=== PATIENT | female | born 2000 | race Caucasian/White ===

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

== ENCOUNTER 2018-10-22 16:28 | Emergency (ER) | payer BC ==
[2018-10-22 16:47] VITALS: BP 108/69
--- NOTE | 2018-10-22 17:12 | UC ---
HPI Febrile Illness - History of Current Complaint Chief Complaint: UCGeneralIllness Time Seen by Provider: 10/22/18 16:41 Hx Last Menstrual Period: 2 months ago Pain Intensity: 0 - Allergy/Home Medications Allergies/Adverse Reactions: Allergies Allergy/AdvReac Type Severity Reaction Status Date / Time No Known Allergies Allergy Verified 10/22/18 16:47 Home Medications: Home Medications Cabergoline 0.5 mg PO SEE INSTRUCTIONS 10/22/18 [History Confirmed 10/22/18] PMH/Surg Hx/FS Hx/Imm Hx Previously Healthy: Yes - Surgical History Surgical History: Yes Surgery Procedure, Year, and Place: 07/2017 Rt THUMB - Family History Known Family History: Positive: Hypertension - Social History Alcohol Use: None Substance Use Type: None Smoking Status (MU): Never Smoked Tobacco Review of Systems All Other Systems Reviewed And Are Negative: Yes Constitutional: Positive: Fever, Chills, Fatigue Neurological: Positive: Headache Is Patient Immunocompromised?: No Physical Exam Triage Information Reviewed: Yes Appearance: Well-Appearing, Well-Nourished, Ill-Appearing Vital Signs: Initial Vital Signs Temp 98 F 10/22/18 16:37 Pulse 86 10/22/18 16:37 Resp 16 10/22/18 16:37 BP 108/69 10/22/18 16:37 Pulse Ox 99 10/22/18 16:37 Vital Signs Reviewed: Yes Eye Exam: Normal ENT: Positive: Pharyngeal erythema, TMs normal Dental Exam: Normal Neck exam: Normal Neck: Positive: Supple, Nontender, No Lymphadenopathy Respiratory Exam: Normal Respiratory: Positive: Chest non-tender, Lungs clear, Normal breath sounds Cardiovascular Exam: Normal Cardiovascular: Positive: RRR, No Murmur, Pulses Normal Abdominal Exam: Normal Abdomen Description: Positive: Nontender, No Organomegaly, Soft, CVA Tenderness (R) - neg, CVA Tenderness (L) - neg Bowel Sounds: Positive: Present Musculoskeletal Exam: Normal Neurological Exam: Normal Psychological Exam: Normal Skin Exam: Normal Course/Dx - Course Course Of Treatment: Patients travel history and symptoms correlated with typohid fever. she has the oral vaccine last year. SHe has traveled to small villages in [facility] and ate at local eateries and houses. Her main complaints are extreme fatigue, fever that builds at night, loss of appetite and headache. she is currently taking motrin for fever. She initially complained of neck stiffness but upon exam it is located on the side of the neck and exacerbated by lateral flexion, no photophobia, she is able to flex and extend the neck without difficulty. Radha Chang was contacted and was in agreement with treating based on symtpoms. she will notify the health department as well. treated Patient was 1 week of Cipro. advised to follow up with any increase GI symptoms, uncontrolled fever or any other concerning symtpoms. advised not to prepare food and to wash hands frequently. - Febrile Illness Differential Diagnoses: Bacteremia, Meningitis - Diagnoses Provider Diagnosis: Fever, Fatigue, Headache, Travel-related illness Discharge - Sign-Out/Discharge Documenting (check all that apply): Patient Departure All imaging exams completed and their final reports reviewed: No Studies - Discharge Plan Condition: Stable Disposition: HOME Prescriptions: Ciprofloxacin TAB* [Cipro 500 MG TAB*] 500 mg PO BID #14 tab Patient Education Materials: Typhoid Vaccine, Live (By mouth), Typhoid (ED) Referrals: Connie Landa MD [Primary Care Provider] - Additional Instructions: 1. Because of your travel history and your symptoms I am going to treate you bea cipro which has shown to decrease symptoms and length of illness. 2. If You develop any increased abdominal pain, unusual stools or bleeding from the rectum please report to ER. 3. Continue with increased fluids and ibuprofen as needed. 4. Get plenty of rest 5. You will probably get a call from the Health department as a follow up. - Billing Disposition and Condition Condition: STABLE Disposition: Home
== END 2018-10-22 17:22 | disposition home or self-care (01) ==
LOC: UCCORT 16:28
DX: R50.9 Fever, unspecified (principal); R53.83 Other fatigue; R51 Headache
CPT/HCPCS: 99212; G0463